=== PATIENT | female | born 1955 | race Caucasian/White ===

== ENCOUNTER → 2019-01-22 | Day surgery (SDC) | payer BC ==
[2019-01-19 16:10] VITALS: BMI 22.8
--- NOTE | 2019-01-21 20:28 | P.HPOB ---
History of Present Illness H&P Date: 01/21/19 Chief Complaint: Recurrent ASCUS with positive high risk HPV This is a 63-year-old female 3 para 3 who presents for loop electrocautery excision procedure with colposcopy due to recurrent atypical squamous cells of undetermined significance with positive high risk HPV. Her last Pap was performed September 282018 and was read out as atypical squamous cells of undetermined significance with positive high risk HPV. Tight 16 and 18 were negative. She had a colposcopy previously done in March 2018 that showed MARIFER-1. She has been treated for MARIFER-1 in 2016 and also in April of this year. She would like definitive surgical treatment due to her recurrent atypical Pap smears. Obstetrical history: . History of 3 vaginal deliveries. Gynecologic history: No history of sexual transmitted diseases. Social history: She is . No current partner. She works as an RN. Review of Systems Constitutional: Denies chills, Denies fever Eyes: denies blurred vision, denies pain Ears, nose, mouth and throat: Reports headache, Denies sore throat Cardiovascular: Denies chest pain, Denies shortness of breath Respiratory: Denies cough Gastrointestinal: Denies abdominal pain, Denies diarrhea, Denies nausea, Denies vomiting Genitourinary: Reports stress incontinence, Denies dysuria, Denies hematuria Musculoskeletal: Reports neck pain, Denies myalgias Neurological: Denies numbness, Denies weakness Psychiatric: Reports change in sleep habits, Reports insomnia Past Medical History Past Medical History: Cancer, Osteoarthritis (OA), Thyroid Disorder Additional Past Medical History / Comment(s): 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 History of Any Multi-Drug Resistant Organisms: None Reported Past Surgical History: Tonsillectomy Additional Past Surgical History / Comment(s): R Tonsil removed because of cancer. Past Anesthesia/Blood Transfusion Reactions: No Reported Reaction Past Psychological History: No Psychological Hx Reported Smoking Status: Never smoker Past Alcohol Use History: Occasional Past Drug Use History: None Reported - Past Family History Mother Additional Family Medical History / Comment(s): Heart disease Father Family Medical History: Diabetes Mellitus Medications and Allergies Home Medications Medication Instructions Recorded Confirmed Type Calcium Carbonate [Calcium] 600 mg PO DAILY 01/19/19 01/19/19 History Cholecalciferol [Vitamin D3] 400 unit PO DAILY@1200 01/19/19 01/19/19 History Cyanocobalamin (Vitamin B-12) 1,000 mcg PO DAILY 01/19/19 01/19/19 History [Vitamin B-12] Levothyroxine Sodium [Synthroid] 100 mcg PO DAILY 01/19/19 01/19/19 History rOPINIRole HCL [Requip] 0.25 mg PO HS 01/19/19 01/19/19 History Allergies Allergy/AdvReac Type Severity Reaction Status Date / Time No Known Allergies Allergy Verified 01/19/19 15:49 Exam Osteopathic Statement: *. No significant issues noted on an osteopathic structural exam other than those noted in the History and Physical/Consult. HEENT: Within normal limits Heart: Regular rate and rhythm Lungs: Clear to auscultation bilaterally Abdomen: Soft, nontender Pelvic exam uterus is retroverted with first-degree uterine prolapse. No adnexal masses or tenderness are palpated. Extremities: Negative Homans Assessment and Plan (1) ASCUS with positive high risk HPV cervical Status: Acute Code(s): R87.610 - ATYP SQUAM CELL OF UNDET SIGNFC CYTO SMR CRVX (ASC-US); R87.810 - CERVICAL HIGH RISK HPV DNA TEST POSITIVE SNOMED Code(s): 70079031 Plan: Proceed with loop electrocautery excision procedure with colposcopy. I have discussed the risks, benefits, and alternative therapies for the above- mentioned procedure and for both sedation/anesthesia as well as necessary blood products administration, if indicated, as they pertain to this patient. The patient has indicated her understanding and acceptance of the risks and procedures discussed.
[~2019-01-22] MED LIST: ACETIC ACID 15 DROPS/ML DROPS MISCELLANE ONE; BUPIVACAINE (PF) 0.5% 30 ML VIAL SQ ONE; DEXAMETHASONE SOD PHOSPHATE 10 MG/ML 1 ML VIAL IV ONE; FERRIC SUBSULFATE (MONSELS) JAR TOPICAL ONE; HYDROmorphone 0.5 MG/0.5 ML SYRINGE IVP PRN; IODINE/POTASS IOD (LUGOLS) 8 ML BTL TOPICAL ONE; LACTATED RINGERS 1,000 ML IV SCH; LIDOCAINE 1% INJ 10MG/ML (20 ML MDV) ONE; LIDOCAINE 1%-EPI 1:100,000 20 ML VIAL SQ ONE; MIDAZOLAM 2 MG/2 ML VIAL IV PRN; MIDAZOLAM 2 MG/2 ML VIAL ONE; ONDANSETRON 4 MG/2 ML VIAL IVP ONE; PROPOFOL 10 MG/ML 20 ML VIAL IV ONE; Pre Op ABX Message 1 EACH MISC MISCELLANE ONE; SCOPOLAMINE 1.5MG/72HR PATCH TRANSDERM ONE; fentaNYL (PF) 50 MCG/ML 2 ML AMP ONE
--- NOTE | 2019-01-22 08:03 | P.OP ---
Date of Procedure: 01/22/19 Preoperative Diagnosis: Recurrent ASCUS Postoperative Diagnosis: Same Procedure(s) Performed: Colposcopy with loop electrocautery excision procedure Anesthesia: other (Mask sedation) Surgeon: Tammi Han Estimated Blood Loss (ml): 2 Pathology: other (Ectocervix with 12 o'clock position marked with a black stitch. Separate piece is endocervix.) Condition: stable Disposition: same day Indications for Procedure: This is a 63-year-old female 3 para 3 who presents for loop electrocautery excision procedure with colposcopy due to recurrent atypical squamous cells of undetermined significance with positive high risk HPV. Her last Pap was performed September 282018 and was read out as atypical squamous cells of undetermined significance with positive high risk HPV. Types 16 and 18 were negative. She had a colposcopy previously done in March 2018 that showed MRAIFER-1. She has been treated for MARIFER-1 in 2016 and also in April of this year. She would like definitive surgical treatment due to her recurrent atypical Pap smears. Operative Findings: No abnormalities are seen with either acetic acid or Lugol solution. Cervical os is noted to be stenotic. Description of Procedure: The patient is taken to the operative room where she is placed in the dorsal lithotomy position. She is prepped and draped in the normal sterile fashion. Her bladder is drained with a catheter. Examination is performed under anesthesia. Uterus is found to be small, anteverted, with no adnexal masses or tenderness palpated. Next a coated bivalve speculum was placed in the patient's vagina. Cervix is then examined with the colposcope. The cervix is swabbed with high percent acetic acid. No abnormalities are seen. Next the cervix is swabbed with Lugol solution. Again no abnormalities are seen. Next the cervix is circumferentially injected with a 50-50 mixture of 1% lidocaine with epinephrine and half percent Marcaine. Approximately 6 mL are used using a spinal needle. Next the large loop is used to swipe from left to right using 35 W of cutting power. Deceases labeled at the 12 o'clock position with a suture. Next a small loop was used to remove the endocervical canal. This is not labeled. Next the bed left behind is cauterized with ball-tipped cautery. Excellent hemostasis is noted. Next Monsel solution is applied. All instruments are removed from the vagina. Sponge counts and needle counts are correct. The patient is then taken to recovery room in stable condition.
[2019-01-22 08:17] VITALS: TEMP 97.2
[2019-01-22 08:27] VITALS: RESP 16
[2019-01-22 09:22] VITALS: BP 178/104; PULSE 85
== END | disposition home or self-care (01) ==
LOC: OR 06:25
PROVIDERS: ATTEND Obstetrics & Gynecology
DX: R87.612 Low grade squamous intraepithelial lesion on cytologic smear of cervix (LGSIL) (principal); R87.810 Cervical high risk human papillomavirus (HPV) DNA test positive; E07.9 Disorder of thyroid, unspecified; M19.90 Unspecified osteoarthritis, unspecified site; Z85.818 Personal history of malignant neoplasm of other sites of lip, oral cavity, and pharynx; Z92.21 Personal history of antineoplastic chemotherapy; Z92.3 Personal history of irradiation; Z90.89 Acquired absence of other organs; Z82.49 Family history of ischemic heart disease and other diseases of the circulatory system; Z83.3 Family history of diabetes mellitus; Z79.890 Hormone replacement therapy; Z79.899 Other long term (current) drug therapy
CPT/HCPCS: 88307; 57460; J2250; J1100; J2405; J2001; J3010; J2704

== ENCOUNTER → 2024-07-29 | Outpatient (CLI) | payer MEDICARE ==
--- NOTE | 2024-07-29 13:01 | MM ---
Reason for Exam: Screening (asymptomatic). Last mammogram was performed 2 year(s) and 8 month(s) ago. Patient History: Menarche at age 15. First Full-Term at age 18. Postmenopausal. Other cancer, age 56. Hormonal Contraceptives, starting at age 19 for 10 years. 04/2012, Chemotherapy. 04/2012, Radiation Therapy. Risk Values: Prerna 5 year model risk: 1.2%. NCI Lifetime model risk: 4.4%. Prior Study Comparison: 12/19/2019 Bilateral Screening Mammogram, [facility]. 11/29/2021 Bilateral Screening Mammogram, [facility]. Tissue Density: The breasts are heterogeneously dense, which may obscure small masses. Findings: Analyzed By CAD. There is an asymmetric density central outer right cc view middle depth which appears new from outside priors but is suspected to relate to altered orientation of normal fibroglandular tissue. Further evaluation recommended. Benign bilateral vascular calcifications. Otherwise, no significant change. Overall Assessment: Incomplete: need additional imaging evaluation, BI-RAD 0 Management: Special View Mammogram of the right breast. To include spot 3-D CC, 3-D CC rolled, and 3-D ML views. [facility] will attempt to contact patient to return for supplemental views and ultrasound if indicated. [facility], , 07/29/2024 12:58 PM. Electronically signed and approved by: Nicole Miller M.D. Radiologist
== END | disposition home or self-care (01) ==
LOC: RADMAMWWP 08:53
PROVIDERS: ATTEND Family Medicine
DX: Z12.31 Encounter for screening mammogram for malignant neoplasm of breast (principal); R92.333 Mammographic heterogeneous density, bilateral breasts; Z78.0 Asymptomatic menopausal state; Z92.0 Personal history of contraception
CPT/HCPCS: 77063; 77067

== ENCOUNTER → 2024-08-02 | Outpatient (CLI) | payer MEDICARE ==
--- NOTE | 2024-08-02 11:54 | MM ---
Reason for Exam: Additional evaluation requested from abnormal screening. Last screening mammogram was performed less than 1 month ago. Patient History: Menarche at age 15. First Full-Term at age 18. Postmenopausal. Other cancer, age 56. Hormonal Contraceptives, starting at age 19 for 10 years. 04/2012, Chemotherapy. 04/2012, Radiation Therapy. Risk Values: Prerna 5 year model risk: 1.2%. NCI Lifetime model risk: 4.4%. Prior Study Comparison: 11/04/2012 Bilateral Screening Mammogram, [facility]. 12/19/2019 Bilateral Screening Mammogram, [facility]. 11/29/2021 Bilateral Screening Mammogram, [facility]. 07/29/2024 Bilateral MG 3D screening mammo w/cad, [facility]. Tissue Density: Right: The breasts are heterogeneously dense, which may obscure small masses. Findings: Analyzed By CAD. No suspicious new lesion persists on additional views. Overall Assessment: Negative, BI-RAD 1 Management: Screening Mammogram of both breasts in 1 year. Return to routine follow-up. Results were given to the patient verbally at the time of exam. Patient should continue monthly self-breast exams. A clinical breast exam by your physician is recommended on an annual basis. This exam should not preclude additional follow-up of suspicious palpable abnormalities. Note on Prerna scores and lifetime risk: 1. A Prerna score greater than 3% is considered moderate risk. If this is the case, consider specialist referral to assess eligibility for a risk reducing agent. 2. If overall lifetime risk for the development of breast cancer is 20% or higher, the patient may qualify for future screening with alternating mammogram and breast MRI. [facility], , 08/02/2024 11:50 AM. Electronically signed and approved by: Toby Zavala M.D.
== END | disposition home or self-care (01) ==
LOC: RADMAMWWP 11:20
PROVIDERS: ATTEND Family Medicine
DX: R92.8 Other abnormal and inconclusive findings on diagnostic imaging of breast (principal); R92.333 Mammographic heterogeneous density, bilateral breasts; Z92.0 Personal history of contraception
CPT/HCPCS: 77065; G0279; 77061